=== PATIENT | male | born 1955 | race Caucasian/White ===

== ENCOUNTER 2021-06-20 18:01 | Inpatient (IN) ==
[2021-06-20] MEDS ORDERED: FUROSEMIDE 40 MG/4 ML VIAL IV STA (19:18)
[2021-06-20] MEDS ORDERED: methylPREDNISolone SOD SUC 125 MG/2 ML VIAL IV STA (19:18)
[2021-06-20] MEDS ORDERED: ALBUTEROL/IPRATROPIUM 3 ML NEB RESP TX STA (19:18)
[2021-06-20 19:37] LABS: PT Patient Result 11.5 SECS (10.5-12.0)
[2021-06-20 19:44] LABS: Alanine Aminotransferase 65 U/L (16-61); Albumin 3.3 G/DL (3.4-5.0); Alkaline Phosphatase 99 U/L (45-117); Aspartate Amino Transferase 30 U/L (0-37); Bilirubin,Total < 0.39 MG/DL (0.20-1.00); Blood Urea Nitrogen 24 MG/DL (7-18); Calcium 9.2 MG/DL (8.5-10.1); Carbon Dioxide 35 MMOL/L (21-32); Chloride 104 MMOL/L (98-107); Glucose 147 MG/DL (74-106); Osmolality,Calculated 287.3 MOS/KG (273-304); Potassium 4.3 MMOL/L (3.5-5.1); Sodium 141 MMOL/L (136-145); Total Protein 6.8 G/DL (6.4-8.2)
[2021-06-20 19:47] LABS: Basophils % 0.1 % (0.0-0.8); Eosinophils % 0.1 % (0.00-10.9); Hematocrit 40.3 VOL% (42.0-52.0); Hemoglobin 11.5 GM/DL (14.0-18.0); Immature Granulocytes % 0.9 %; Lymphocytes # 0.7 10*3/uL (1.4-4.0); Lymphocytes % 6.7 % (21.2-54.2); Mean Corpuscular HGB Conc 28.5 GM/DL (32-36); Mean Corpuscular Volume 104.7 FL (87-102); Mean Platelet Volume 9.6 FL (9.6-12.0); Monocytes # 0.5 10*3/uL (0.11-0.8); Monocytes % 4.7 % (1.7-12.7); NRBC # 0.05 10*3/uL; Neutrophils % 87.5 % (38.7-73.9); Platelet Count 504 T/CUMM (130-400); Red Blood Count 3.85 MC/CUMM (3.8-5.5); Red Cell Distribution Width 16.8 % (9.3-17.3); White Blood Count 10.9 T/CUMM (4-12)
[2021-06-20 19:52] LABS: Platelet Estimate Increased
[2021-06-20 19:53] LABS: Hypochromia Slight; Polychromasia Slight
[2021-06-20 19:54] LABS: ABG Base Excess 3.7 MMOL/L (-2.5-2.5); ABG HCO3 27.6 MMOL/L (20-26); ABG PO2 64.1 MM HG (80-95); ABG TCO2 32.4 MMOL/L (23-27)
[2021-06-20 19:57] LABS: ABG PCO2 88.8 MM HG (35-48); ABG PH 7.202 (7.35-7.45)
[2021-06-20] MEDS ORDERED: ENOXAPARIN 30 MG/0.3 ML SYRINGE SUBCUT STA (20:36)
[2021-06-20] MEDS: LEVOFLOXACIN INJ 750 MG/150 ML PREMIX IV SCH (21:38)
[2021-06-20] MEDS ORDERED: DEXTROSE 10% 250 ML BAG IV PRN (22:04)
[2021-06-20] MEDS ORDERED: hydrALAZINE 20 MG/1 ML VIAL IV PRN (22:04)
[2021-06-20] MEDS ORDERED: GLUCAGON 1 MG VIAL IM PRN (22:04)
[2021-06-20] MEDS ORDERED: ONDANSETRON 4 MG/2 ML VIAL IV PRN (22:04)
[2021-06-20] MEDS ORDERED: ACETAMINOPHEN 325 MG TABLET PO PRN (22:04)
[2021-06-20] MEDS ORDERED: ASPIRIN 325 MG TABLET PO ONE (22:09)
[2021-06-20 22:19] LABS: Arterial Base Excess iSTAT 8 MMOL/L (-2.5-2.5); Arterial Bicarbonate iSTAT 37.1 MMOL/L (20-26); Arterial O2 Saturation iSTAT 97 % (95-100); Arterial PCO2 iSTAT 74 MM HG (35-48); Arterial PO2 iSTAT 100 MM HG (80-95); Arterial Total CO2 iSTAT 39 MMO/L (23-27); Arterial pH iSTAT 7.308 (7.35-7.45)
[2021-06-21] MEDS: ALBUTEROL/IPRATROPIUM 3 ML NEB RESP TX SCH ×5 (00:38→23:18)
[2021-06-21 01:43] LABS: Basophils % 0.1 % (0.0-0.8); Hemoglobin 11.4 GM/DL (14.0-18.0); Immature Granulocytes % 0.8 %; Immature Granulocytes Absolute 0.07 #; Lymphocytes # 0.2 10*3/uL (1.4-4.0); Lymphocytes % 2.3 % (21.2-54.2); Mean Corpuscular HGB Conc 29.2 GM/DL (32-36); Mean Corpuscular Volume 102.4 FL (87-102); Mean Platelet Volume 9.4 FL (9.6-12.0); Monocytes # 0.1 10*3/uL (0.11-0.8); Monocytes % 0.7 % (1.7-12.7); NRBC # 0.04 10*3/uL; Neutrophils % 96.1 % (38.7-73.9); Platelet Count 516 T/CUMM (130-400); Red Blood Count 3.81 MC/CUMM (3.8-5.5); Red Cell Distribution Width 16.6 % (9.3-17.3); White Blood Count 8.7 T/CUMM (4-12)
[2021-06-21 02:13] LABS: Calcium 9.5 MG/DL (8.5-10.1); Osmolality,Calculated 276.8 MOS/KG (273-304); Potassium 4.6 MMOL/L (3.5-5.1); Risk Ratio 3.74; Thyroid Stimulating Hormone 0.034 uIU/ml (0.358-3.74); VLDL Cholesterol 21.8 MG/DL
[2021-06-21 02:19] LABS: Platelet Estimate Increased
[2021-06-21] MEDS: methylPREDNISolone SOD SUC 125 MG/2 ML VIAL IV SCH ×4 (04:28→21:53)
[2021-06-21 06:08] LABS: ABG Base Excess 9.6 MMOL/L (-2.5-2.5); ABG HCO3 33.2 MMOL/L (20-26); ABG Oxygen Saturation 94.7 % (95-100); ABG PH 7.329 (7.35-7.45); ABG PO2 77.8 MM HG (80-95); ABG TCO2 34.9 MMOL/L (23-27)
[2021-06-21] MEDS ORDERED: amLODIPine 10 MG TABLET PO SCH (09:00)
[2021-06-21] MEDS ORDERED: APIXABAN 5 MG TABLET PO SCH (09:00)
[2021-06-21] MEDS ORDERED: lisinopriL 10 MG TABLET PO SCH ×2 (12:00→21:00)
[2021-06-21] MEDS ORDERED: VENLAFAXINE XR 75 MG CAPSULE PO SCH (12:00)
[2021-06-21] MEDS ORDERED: ESCITALOPRAM 10 MG TABLET PO SCH (12:00)
[2021-06-21] MEDS ORDERED: SPIRONOLACTONE 25 MG TABLET PO SCH (12:00)
[2021-06-21] MEDS ORDERED: METOPROLOL SUCCINATE XL 50 MG TABLET PO SCH (12:00)
[2021-06-21] MEDS: NICOTINE 21 MG/24 HR PATCH TRANSDERM SCH (12:08)
[2021-06-21] MEDS: FUROSEMIDE 40 MG/4 ML VIAL IV SCH ×2 (12:09→18:43)
[2021-06-21 12:46] LABS: Calcium 9.3 MG/DL (8.5-10.1); Osmolality,Calculated 286.3 MOS/KG (273-304); Potassium 4.3 MMOL/L (3.5-5.1)
[2021-06-21] MEDS: PANTOPRAZOLE 40 MG TABLET PO SCH (13:22)
[2021-06-21] MEDS: TAMSULOSIN 0.4 MG CAPSULE PO SCH ×2 (13:30→21:54)
[2021-06-21] MEDS ORDERED: ZALEPLON 5 MG CAPSULE PO PRN (20:09)
[2021-06-21] MEDS: MORPHINE 2 MG/1 ML SYRINGE IV PRN (21:53)
[2021-06-21] MEDS: FOLIC ACID 1 MG TABLET PO SCH (21:54)
[2021-06-21] MEDS: VENLAFAXINE XR 75 MG CAPSULE PO SCH (21:54)
[2021-06-21] MEDS: METOPROLOL SUCCINATE XL 50 MG TABLET PO SCH (21:54)
[2021-06-21] MEDS: ATORVASTATIN 10 MG TABLET PO SCH (21:54)
[2021-06-21] MEDS: ESCITALOPRAM 10 MG TABLET PO SCH (21:55)
[2021-06-21] MEDS: APIXABAN 5 MG TABLET PO SCH (21:55)
[2021-06-21] MEDS: POTASSIUM CHLORIDE 20 MEQ TABLET PO SCH (21:55)
[2021-06-21] MEDS: SPIRONOLACTONE 25 MG TABLET PO SCH (21:55)
[2021-06-21] MEDS: BUDESONIDE/FORMOTEROL 160-4.5 INHALER 6 GM INH SCH (21:57)
[2021-06-21] MEDS: LEVOFLOXACIN INJ 750 MG/150 ML PREMIX IV SCH (22:44)
[2021-06-22] MEDS: methylPREDNISolone SOD SUC 125 MG/2 ML VIAL IV SCH ×4 (03:45→22:06)
[2021-06-22] MEDS: MORPHINE 2 MG/1 ML SYRINGE IV PRN ×3 (03:51→22:07)
[2021-06-22] MEDS: ALBUTEROL/IPRATROPIUM 3 ML NEB RESP TX SCH ×7 (03:55→23:20)
[2021-06-22 05:12] LABS: Hematocrit 32.8 VOL% (42.0-52.0); Immature Granulocytes % 0.5 %; Immature Granulocytes Absolute 0.04 #; Lymphocytes # 0.2 10*3/uL (1.4-4.0); Lymphocytes % 2.9 % (21.2-54.2); Mean Corpuscular HGB Conc 30.5 GM/DL (32-36); Mean Corpuscular Volume 98.5 FL (87-102); Mean Platelet Volume 9.8 FL (9.6-12.0); Monocytes # 0.2 10*3/uL (0.11-0.8); NRBC # 0.04 10*3/uL; Neutrophils % 93.6 % (38.7-73.9); Platelet Count 435 T/CUMM (130-400); Red Blood Count 3.33 MC/CUMM (3.8-5.5); Red Cell Distribution Width 16.4 % (9.3-17.3); White Blood Count 7.3 T/CUMM (4-12)
[2021-06-22 05:28] LABS: Calcium 8.8 MG/DL (8.5-10.1); Osmolality,Calculated 291.8 MOS/KG (273-304); Potassium 4.2 MMOL/L (3.5-5.1)
[2021-06-22 05:37] LABS: Lymphocytes 5 % (20-55); Platelet Estimate Increased; Total Cells Counted 100
[2021-06-22] MEDS ORDERED: MAGNESIUM SULF RIDER 4 GM/100 ML PREMIX IV ONE (08:37)
[2021-06-22] MEDS: APIXABAN 5 MG TABLET PO SCH ×2 (10:07→22:06)
[2021-06-22] MEDS: POTASSIUM CHLORIDE 20 MEQ TABLET PO SCH ×2 (10:08→22:06)
[2021-06-22] MEDS: TAMSULOSIN 0.4 MG CAPSULE PO SCH ×2 (10:08→22:05)
[2021-06-22] MEDS: PANTOPRAZOLE 40 MG TABLET PO SCH (10:08)
[2021-06-22] MEDS: NICOTINE 21 MG/24 HR PATCH TRANSDERM SCH (10:08)
[2021-06-22] MEDS: ROFLUMILAST 500 MCG TABLET PO SCH (10:11)
[2021-06-22] MEDS: FUROSEMIDE 40 MG/4 ML VIAL IV SCH ×2 (10:21→16:36)
[2021-06-22] MEDS ORDERED: lisinopriL 20 MG TABLET PO SCH (21:00)
[2021-06-22] MEDS: VENLAFAXINE XR 75 MG CAPSULE PO SCH (22:05)
[2021-06-22] MEDS: LEVOFLOXACIN INJ 750 MG/150 ML PREMIX IV SCH (22:06)
[2021-06-22] MEDS: ATORVASTATIN 10 MG TABLET PO SCH (22:07)
[2021-06-22] MEDS: ESCITALOPRAM 10 MG TABLET PO SCH (22:07)
[2021-06-22] MEDS: SPIRONOLACTONE 25 MG TABLET PO SCH (22:08)
[2021-06-22] MEDS: METOPROLOL SUCCINATE XL 50 MG TABLET PO SCH (22:09)
[2021-06-22] MEDS: BUDESONIDE/FORMOTEROL 160-4.5 INHALER 6 GM INH SCH (22:13)
[2021-06-22] MEDS: FOLIC ACID 1 MG TABLET PO SCH (22:13)
[2021-06-23] MEDS: BUDESONIDE/FORMOTEROL 160-4.5 INHALER 6 GM INH SCH (00:42)
[2021-06-23] MEDS: FOLIC ACID 1 MG TABLET PO SCH (01:58)
[2021-06-23] MEDS: methylPREDNISolone SOD SUC 125 MG/2 ML VIAL IV SCH ×2 (03:35→09:00)
[2021-06-23] MEDS: ALBUTEROL/IPRATROPIUM 3 ML NEB RESP TX SCH ×3 (03:55→11:49)
[2021-06-23 05:22] LABS: Hematocrit 34.4 VOL% (42.0-52.0); Hemoglobin 10.6 GM/DL (14.0-18.0); Immature Granulocytes % 0.9 %; Immature Granulocytes Absolute 0.08 #; Lymphocytes # 0.2 10*3/uL (1.4-4.0); Lymphocytes % 2.6 % (21.2-54.2); Mean Corpuscular HGB Conc 30.8 GM/DL (32-36); Mean Corpuscular Volume 97.7 FL (87-102); Mean Platelet Volume 9.7 FL (9.6-12.0); Monocytes # 0.5 10*3/uL (0.11-0.8); Monocytes % 5.1 % (1.7-12.7); NRBC # 0.05 10*3/uL; Neutrophils % 91.4 % (38.7-73.9); Platelet Count 407 T/CUMM (130-400); Red Blood Count 3.52 MC/CUMM (3.8-5.5); Red Cell Distribution Width 16.4 % (9.3-17.3); White Blood Count 9.3 T/CUMM (4-12)
[2021-06-23 05:38] LABS: Calcium 8.9 MG/DL (8.5-10.1); Osmolality,Calculated 282.7 MOS/KG (273-304); Potassium 3.7 MMOL/L (3.5-5.1)
[2021-06-23 05:58] LABS: Lymphocytes 3 % (20-55); Platelet Estimate Increased; Total Cells Counted 100
[2021-06-23 05:59] LABS: Hypochromia 2+
[2021-06-23] MEDS: FUROSEMIDE 40 MG/4 ML VIAL IV SCH (09:00)
[2021-06-23] MEDS ORDERED: FUROSEMIDE 40 MG TABLET PO SCH (09:30)
[2021-06-23] MEDS ORDERED: predniSONE 20 MG TABLET PO SCH (09:30)
[2021-06-23] MEDS: POTASSIUM CHLORIDE 20 MEQ TABLET PO SCH (09:48)
[2021-06-23] MEDS: PANTOPRAZOLE 40 MG TABLET PO SCH (09:48)
[2021-06-23] MEDS: APIXABAN 5 MG TABLET PO SCH (09:48)
[2021-06-23] MEDS: NICOTINE 21 MG/24 HR PATCH TRANSDERM SCH (09:49)
[2021-06-23] MEDS: TAMSULOSIN 0.4 MG CAPSULE PO SCH (09:49)
[2021-06-23] MEDS: ROFLUMILAST 500 MCG TABLET PO SCH (10:03)
[2021-06-23 12:51] VITALS: BP 166/81
== END 2021-06-23 14:42 | disposition home or self-care (01) | DRG 190 ==
LOC: N.ED 18:01 → N.EDINP 06-21 00:41 → N.TELEN 06-21 01:06
PROVIDERS: ADMIT Internal Medicine; ATTEND Internal Medicine